=== PATIENT | female | born 1970 | race Hispanic/Latino ===

== ENCOUNTER 2018-01-08 19:48 | Inpatient (IN) | payer SELFPAY ==
--- NOTE | 2018-01-08 20:31 | ED PDOC ---
HPI: Psych/Substance Abuse Time Seen by Provider: 01/08/18 20:04 Chief Complaint (Nursing): Psychiatric Evaluation Chief Complaint (Provider): bizarre behavior ED Caveat: Psychotic History Per: EMS Onset/Duration Of Symptoms: Unknown Current Symptoms Are (Timing): Still Present Additional Complaint(s): [facility] Acting inappropriately and shouting. Speaking nonsensically. She continues to do so here and is unable to give any reliable history. Past Medical History Reviewed: Historical Data, Nursing Documentation, Vital Signs, Unable To Obtain Vital Signs: Last Vital Signs Temp 98.0 F 01/08/18 19:51 Pulse 103 H 01/08/18 19:51 Resp 16 01/08/18 19:51 BP 120/65 01/08/18 19:51 Pulse Ox 98 01/08/18 19:51 - Family History Family History: States: Unknown Family Hx - Allergies Allergies/Adverse Reactions: Allergies Allergy/AdvReac Type Severity Reaction Status Date / Time No Known Allergies Allergy Verified 01/08/18 19:50 Review of Systems Review Of Systems: ROS cannot be obtained secondary to pt's inabilty to answer questions. Physical Exam - Reviewed Nursing Documentation Reviewed: Yes Vital Signs Reviewed: Yes - Physical Exam Appears: Positive for: In Acute Distress (acutely psychotic) Head Exam: Positive for: NORMOCEPHALIC (+superficial abrasions RIGHT forehead) Skin: Positive for: Warm, Dry Eye Exam: Positive for: EOMI, PERRL Respiratory: Negative for: Accessory Muscle Use, Respiratory Distress Extremity: Positive for: Normal ROM. Negative for: Deformity Neurologic/Psych: Positive for: Alert, Other (speaking nonsensically with tangential thought pressured speech flight of ideas, assumes that staff are people she is related to or knows already). Negative for: Oriented, Motor/ Sensory Deficits, Aphasia - Laboratory Results Result Diagrams: 01/08/18 20:23 01/08/18 20:45 - ECG O2 Sat by Pulse Oximetry: 98 - Radiology Nexus Criteria: Midline Tenderness/Distra - Progress ED Course And Treament: Pt required medication and restraint for acute psychosis. Labs drawn and CT head performed when more cooperative (sleeping.) 12am Endorsed to Dr Sierra. Pt still somnolent from medications. ER workup thus far unremarkable. Pending alertness for Crisis eval. Stable at this time. Disposition - Clinical Impression Clinical Impression: Psychosis - Disposition Disposition: Transfer of Care Disposition Time: 01:00 Condition: FAIR Patient Signed Over To: Bora Sierra
[2018-01-08 20:50] LABS: BASO # 0.1 K/uL (0.0-0.2); BASO % 0.8 % (0.0-2.0); EOS # 0.2 K/uL (0.0-0.7); EOS % 2.9 % (0.0-4.0); HEMOGLOBIN 12.5 g/dL (12.0-16.0); LYMPH # 2.3 K/uL (1.0-4.3); LYMPH % 34.8 % (20.0-40.0); MEAN CELL VOLUME 81.6 fl (81.0-99.0); MEAN CORPUSCULAR HEMOGLOBIN 26.8 pg (27.0-31.0); MEAN CORPUSCULAR HGB CONC 32.9 g/dL (33.0-37.0); MEAN PLATELET VOLUME 9.1 fl (7.2-11.7); MONO # 0.4 K/uL (0.0-0.8); MONO % 6.4 % (0.0-10.0); NEUT # 3.7 K/uL (1.8-7.0); NEUT % 55.1 % (50.0-75.0); RBC 4.68 Mil/uL (3.80-5.20); RED CELL DISTRIBUTION WIDTH 15.7 % (11.5-14.5); WHITE BLOOD COUNT 6.7 K/uL (4.8-10.8)
[2018-01-08 21:05] LABS: ACETAMINOPHEN < 10.0 ug/ml (10.0-30.0); SALICYLATE < 1.0 mg/dl
[2018-01-08 21:07] LABS: ALT/SGPT 41 U/L (9-52); AST/SGOT 28 U/L (14-36); BLOOD UREA NITROGEN 19 mg/dl (7-17); CALCIUM 9.2 mg/dL (8.4-10.2); GFR AFRICAN-AMERICAN > 60; GFR NON-AFRICAN AMERICAN > 60
--- NOTE | 2018-01-09 01:00 | CT ---
EXAM: CT Head Without Intravenous Contrast CLINICAL HISTORY: 47 years old, female; Signs and symptoms; Other: R/O bleed TECHNIQUE: Axial computed tomography images of the head/brain without intravenous contrast. All CT scans at this facility use one or more dose reduction techniques, viz.: automated exposure control; ma/kV adjustment per patient size (including targeted exams where dose is matched to indication; i.e. head); or iterative reconstruction technique. Coronal and sagittal reformatted images were created and reviewed. COMPARISON: No relevant prior studies available. FINDINGS: Brain: Unremarkable. No hemorrhage. No significant white matter disease. No edema. Ventricles: Unremarkable. No ventriculomegaly. Bones/joints: Unremarkable. No acute fracture. Soft tissues: Unremarkable. Sinuses: Unremarkable as visualized. No acute sinusitis. Mastoid air cells: Unremarkable as visualized. No mastoid effusion. IMPRESSION: No evidence of an acute intracranial abnormality.
--- NOTE | 2018-01-09 08:40 | ED PDOC ---
- Laboratory Results Result Diagrams: 01/08/18 20:23 01/08/18 20:45 - ECG O2 Sat by Pulse Oximetry: 96 (RA) Pulse Ox Interpretation: Normal Medical Decision Making Medical Decision Making: Time: 834 Pending [facility] screening. 1300 Patient will sign in for voluntary admission., Accepted by Dr Johnson. Scribe Attestation: Documented by Breanne Davey, acting as a scribe for Jeanie Vera MD. Provider Scribe Attestation: All medical record entries made by the Scribe were at my direction and personally dictated by me. I have reviewed the chart and agree that the record accurately reflects my personal performance of the history, physical exam, medical decision making, and the department course for this patient. I have also personally directed, reviewed, and agree with the discharge instructions and disposition. Disposition Counseled Patient/Family Regarding: Studies Performed, Diagnosis - Clinical Impression Clinical Impression: Psychosis - POA Present On Arrival: None - Disposition Disposition: Admitted as In-Patient Disposition Time: 13:00 Condition: FAIR
[2018-01-09 15:45] LABS: BARBITURATES, UR NEGATIVE (NEGATIVE); BENZODIAZEPINES, UR NEGATIVE (NEGATIVE); OPIATES, UR NEGATIVE (NEGATIVE); PHENCYCLIDINE, UR NEGATIVE (NEGATIVE)
[2018-01-09] MEDS ORDERED: Alum-Mag Hydrox-Simethicone Susp (30 mL) PO PRN (17:18)
[2018-01-09] MEDS ORDERED: Magnesium Hydroxide Susp 30 ml UD PO PRN (17:18)
[2018-01-09] MEDS ORDERED: DiphenhydrAMINE 50 mg/ml Inj IM PRN (17:18)
[2018-01-09 18:21] VITALS: RESP 18
--- NOTE | 2018-01-09 18:57 | PCM.BM ---
<Remigio Palacios - Last Filed: 01/09/18 18:55> Treatment Plan Problems - Problems identified on initial assessmt schizophrenia spectrum Date Initiated: 01/09/18 Time Initiated: 16:00 Assessment reference: NA Status: Active Treatment assets and liabiliti Patient Assests: adapts well, ADL independent Patient Liabilities: live alone - Milieu Protocol Maintain good personal hygiene: every shift Encourage regular showers, every shift Remind patient to perform daily oral care, every shift Assist patient to perform ADL's Maintain personal safety: every shift Educate patient to report safety concerns to staff, every shift Monitor environment for contraband/sharps Medication safety: Monitor for expected outcome, potential side effects: every shift, Assess barriers to learning: every shift, Assess readiness for medication education: every shift <Robert Karimi - Last Filed: 01/10/18 19:52> Family Contact Family involvement: Famlicasey/SO not involved Family contact: Patient declines to allow family contact at present Family contact name: Unknown. - Goals for Treatment Patient goals for treatment: Pt unable to formulate goals at this time. Discharge/Continuing Care - Education Needs Education Needs: Patient Medication, Patient Diagnosis/Disease Process, Patient Coping Skills, Patient Community resources, Patient Personal Hygiene/Grooming, Patient Aftercare Safety Plan - Discharge Discharge Criteria: Tolerates medication w/o severe side effects, Free of paranoid thoughts, Free of agitation, Ability to care for self, Reduction of target symptoms Discharge to:: Custodial - Treatment Team Participation Discussed with Family/SO: No
[2018-01-10 11:44] VITALS: TEMP 97.4
--- NOTE | 2018-01-10 12:57 | CP.PCM.CON ---
History of Present Illness - History of Present Illness History of Present Illness: CC: Psychosis Patient is a 47 year old female [facility]. She is not able to give any reliable history due to acute psychosis and does not answer questions appropriately. No known medical problems in the past and does not take any outpatient medications. Review of Systems - Review of Systems Systems not reviewed;Unavailable: Psychotic Past Patient History - Infectious Disease Hx of Infectious Diseases: None - Past Medical History & Family History Past Medical History?: No Past Family History: Reviewed and not pertinent (unable to obtain due to acute psychosis) - Past Social History Smoking Status: Unknown If Ever Smoked Home Situation {Lives}: Homeless - PSYCHIATRIC Hx Schizophrenia: Yes ([facility] 2009 committed) Hx Substance Use: No Meds Allergies/Adverse Reactions: Allergies Allergy/AdvReac Type Severity Reaction Status Date / Time No Known Allergies Allergy Verified 01/08/18 19:50 - Medications Medications: Current Medications Acetaminophen (Tylenol 325mg Tab) 650 mg PO Q4 PRN PRN Reason: Pain, Mild (1-3) Al Hydrox/Mg Hydrox/Simethicone (Maalox Plus 30 Ml) 30 ml PO Q4 PRN PRN Reason: Dyspepsia Diphenhydramine HCl (Benadryl) 50 mg IM Q6 PRN PRN Reason: Extrapyramidal S/S Unable PO Diphenhydramine HCl (Benadryl) 50 mg PO HS PRN PRN Reason: EPS/Dystonic reaction Diphenhydramine HCl (Benadryl) 50 mg PO Q6 PRN PRN Reason: EPS/DYSTONIC reaction Haloperidol (Haldol) 5 mg PO Q4 PRN PRN Reason: Agitation Haloperidol Lactate (Haldol) 5 mg IM Q4 PRN PRN Reason: Agitation, Unable to Take PO Lorazepam (Ativan) 2 mg IM Q4 PRN PRN Reason: Anxiety/Agitation,Unable PO Lorazepam (Ativan) 2 mg PO Q4 PRN PRN Reason: Anxiety Magnesium Hydroxide (Milk Of Magnesia) 30 ml PO HS PRN PRN Reason: Constipation Physical Exam - Additional Findings Additional findings: Physical exam: Constitutional- acutely psychotic, awake, alert Head- 2 2x2 cm abrasions on her forehead, with eschars, healing well. NCAT, PERRL Eye- PERRL, EOMI ENT- normal exam, MMM. Neck- normal inspection, supple, no JVD Respiratory- CTAB, no wheezes rales rhonchi Cardiovascular- RRR, +S1, +S2 no MRG GI/Abdominal- normal bowel sounds, soft, no mass, no hsm Skin- warm, dry Extremities Exam- normal capillary refill, normal inspection Neurological Exam- alert, awake, oriented Psych- labile mood, acutely psychotic, pressed speech Results - Vital Signs Recent Vital Signs: Last Vital Signs Temp 97.4 F L 01/10/18 09:00 Pulse 85 01/10/18 09:00 Resp 18 01/10/18 09:00 BP 97/51 L 01/10/18 09:00 Pulse Ox 96 01/10/18 11:48 - Labs Result Diagrams: 01/08/18 20:23 01/08/18 20:45 Labs: Laboratory Results - last 24 hr 01/09/18 14:45 Urine Opiates Screen Negative Urine Methadone Screen Negative Ur Barbiturates Screen Negative Ur Phencyclidine Scrn Negative Ur Amphetamines Screen Negative U Benzodiazepines Scrn Negative U Oth Cocaine Metabols Negative U Cannabinoids Screen Negative Assessment & Plan - Assessment and Plan (Free Text) Plan: ASSESSMENT/PLAN 1) Acute psychosis on schizophrenia spectrum - management as per psychiatry - Wanda Byrd - Severe psychosis is apparent and she is an unreliable historian 2) Homeless patient - chronic - lives at jail
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
[2018-01-10 14:51] VITALS: BP 122/68; PULSE 76
--- NOTE | 2018-01-10 16:37 | RAD ---
HISTORY: needed for screening COMPARISON: No prior. FINDINGS: LUNGS: The lungs are well inflated and clear. PLEURA: No significant pleural effusion identified, no pneumothorax apparent. CARDIOVASCULAR: Normal. OSSEOUS STRUCTURES: No significant abnormalities. VISUALIZED UPPER ABDOMEN: Normal. OTHER FINDINGS: None. IMPRESSION: No active pulmonary disease.
[2018-01-10 19:57] LABS: SQUAMOUS EPITHIAL 1 /hpf (0-5); URINE BILIRUBIN NEGATIVE (NEGATIVE); URINE BLOOD NEGATIVE (NEGATIVE); URINE CLARITY CLOUDY (Clear); URINE COLOR YELLOW (YELLOW); URINE GLUCOSE (UA) NEG (Normal); URINE LEUKOCYTE ESTERASE NEG Leu/uL (Negative); URINE PROTEIN NEGATIVE (NEGATIVE); URINE UROBILINOGEN 0.2-1.0 mg/dL (0.2-1.0)
[2018-01-11 14:03] VITALS: O2SAT 98
--- NOTE | 2018-01-11 20:41 | CARD ---
APPROVED REPORT EKG Measurement Heart [id number] <Conclusion> Normal sinus rhythm Normal ECG
== END 2018-01-11 03:45 | DRG 885 ==
LOC: H.ER 19:48 → H.ERHOLD 01-09 14:36 → H.PSYCH 01-09 15:54
PROVIDERS: ADMIT Psychiatry & Neurology Psychiatry; ATTEND Psychiatry & Neurology Psychiatry
PROC: GZHZZZZ Group Psychotherapy (ICD-10-PCS; principal; 2018-01-09)
DX: F25.0 Schizoaffective disorder, bipolar type (principal); Z59.0 Homelessness; Z78.1 Physical restraint status; S00.83XA Contusion of other part of head, initial encounter; X58.XXXA Exposure to other specified factors, initial encounter; Y92.89 Other specified places as the place of occurrence of the external cause

== ENCOUNTER 2018-03-29 09:42 | Emergency (ER) | payer MEDICARE, MEDICAID ==
[2018-03-29 09:59] VITALS: BMI 33.4
[2018-03-29 10:14] VITALS: PULSE 78; TEMP 97; O2SAT 98
--- NOTE | 2018-03-29 12:02 | ED PDOC ---
HPI: CCC, URI, Sore Throat Time Seen by Provider: 03/29/18 10:24 Chief Complaint (Nursing): Cough, Cold, Congestion Chief Complaint (Provider): Cough x 2 weeks History Per: Patient History/Exam Limitations: no limitations Have you had recent travel within the past 21 days to any of the following countries: [place], [place], [place] or [place]?: No Onset/Duration Of Symptoms: Days Current Symptoms Are (Timing): Still Present Sick Contacts (Context): None Associated Symptoms: Cough, Sputum. denies: Fever, Chills, Sore Throat Ear Symptoms: Bilateral: None Additional Complaint(s): 47 yo female with no medical problems presents with cough x 2 weeks. PT reports yellow phlegm. No fever/chills. PT states she just wants medications for cough and cannot afford them. No chest pain. Past Medical History Reviewed: Historical Data, Nursing Documentation, Vital Signs Vital Signs: Last Vital Signs Temp 97 F L 03/29/18 10:11 Pulse 78 03/29/18 10:11 Resp 18 03/29/18 10:11 BP 104/69 03/29/18 09:58 Pulse Ox 98 03/29/18 10:11 - Medical History PMH: Schizophrenia ([facility] 2009 committed) - Surgical History Surgical History: No Surg Hx - Family History Family History: States: Unknown Family Hx - Living Arrangements Living Arrangements: With Family - Social History Current smoker - smoking cessation education provided: Yes - Home Medications Home Medications: Ambulatory Orders Medication Instructions Recorded Azithromycin [Zithromax] 250 mg PO DAILY #6 tab 03/29/18 Dextromethorphan Polistirex 30 mg PO Q12H #50 ml 03/29/18 [Delsym] - Allergies Allergies/Adverse Reactions: Allergies Allergy/AdvReac Type Severity Reaction Status Date / Time No Known Allergies Allergy Verified 01/08/18 19:50 Review of Systems ROS Statement: Except As Marked, All Systems Reviewed And Found Negative Constitutional: Negative for: Fever, Chills, Sweats Cardiovascular: Negative for: Chest Pain, Palpitations Respiratory: Positive for: Cough, Sputum. Negative for: Shortness of Breath Physical Exam - Reviewed Nursing Documentation Reviewed: Yes Vital Signs Reviewed: Yes - Physical Exam Appears: Positive for: Well, Non-toxic, No Acute Distress Head Exam: Positive for: ATRAUMATIC, NORMAL INSPECTION, NORMOCEPHALIC Skin: Positive for: Normal Color, Warm, DRY Eye Exam: Positive for: Normal appearance ENT: Positive for: Normal ENT Inspection Neck: Positive for: Normal, Painless ROM Cardiovascular/Chest: Positive for: Regular Rate, Rhythm Respiratory: Positive for: CNT, Normal Breath Sounds Back: Positive for: Normal Inspection Extremity: Positive for: Normal ROM Neurologic/Psych: Positive for: Alert, Oriented - ECG O2 Sat by Pulse Oximetry: 98 Medical Decision Making Medical Decision Making: CXR without acute cardiopulmonary findings. Disposition - Clinical Impression Clinical Impression: Cough - Patient ED Disposition Is Patient to be Admitted: No Counseled Patient/Family Regarding: Diagnosis, Need For Followup, Rx Given - Disposition [facility]errals: [facility] Disposition: Routine/Home Disposition Time: 12:02 Condition: STABLE Prescriptions: Azithromycin [Zithromax] 250 mg PO DAILY #6 tab Dextromethorphan Polistirex [Delsym] 30 mg PO Q12H #50 ml Instructions: Cough in Adults
--- NOTE | 2018-03-29 12:16 | RAD ---
Date of service: 03/29/2018 HISTORY: cough x 2 weeks COMPARISON: 01/10/2018. TECHNIQUE: Chest PA and lateral FINDINGS: LUNGS: No active pulmonary disease. PLEURA: No significant pleural effusion identified. No pneumothorax apparent. CARDIOVASCULAR: No radiographic findings to suggest acute or significant cardiovascular disease. OSSEOUS STRUCTURES: No significant abnormalities. VISUALIZED UPPER ABDOMEN: Normal. OTHER FINDINGS: None. IMPRESSION: No active disease. No significant interval change compared to the prior examination(s).
[2018-03-29 12:51] VITALS: BP 128/76; RESP 19
== END 2018-03-29 12:52 | disposition home or self-care (01) ==
LOC: H.ER 09:42
DX: R05 Cough (principal); F17.200 Nicotine dependence, unspecified, uncomplicated; F20.9 Schizophrenia, unspecified

== ENCOUNTER 2018-06-22 19:34 | Emergency (ER) | payer MEDICARE, OTHER ==
[2018-06-22 19:34] VITALS: BMI 33.4
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
[2018-06-23 04:55] LABS: ALBUMIN 3.4 g/dL (3.5-5.0); ALT/SGPT 41 U/L (9-52); AST/SGOT 33 U/L (14-36); BLOOD UREA NITROGEN 14 mg/dl (7-17); CALCIUM 8.6 mg/dL (8.4-10.2); GFR NON-AFRICAN AMERICAN > 60
[2018-06-23] MEDS ORDERED: Potassium Chloride 20 mEq ER Tab PO ONE ×2 (05:01→12:56)
[2018-06-23 05:03] LABS: SQUAMOUS EPITHIAL 1 /hpf (0-5); URINE BILIRUBIN NEGATIVE (NEGATIVE); URINE BLOOD SMALL (NEGATIVE); URINE CLARITY CLEAR (Clear); URINE COLOR YELLOW (YELLOW); URINE GLUCOSE (UA) NEG (Normal); URINE LEUKOCYTE ESTERASE NEG Leu/uL (Negative); URINE PROTEIN 30 mg/dL (NEGATIVE); URINE UROBILINOGEN 0.2-1.0 mg/dL (0.2-1.0)
[2018-06-23 05:13] LABS: BASO % 0.7 % (0.0-2.0); EOS # 0.3 K/uL (0.0-0.7); EOS % 4.9 % (0.0-4.0); LYMPH # 1.9 K/uL (1.0-4.3); LYMPH % 35.9 % (20.0-40.0); MEAN CELL VOLUME 81.9 fl (81.0-99.0); MEAN CORPUSCULAR HEMOGLOBIN 27.2 pg (27.0-31.0); MEAN CORPUSCULAR HGB CONC 33.2 g/dL (33.0-37.0); MONO # 0.5 K/uL (0.0-0.8); MONO % 10.1 % (0.0-10.0); NEUT # 2.5 K/uL (1.8-7.0); NEUT % 48.4 % (50.0-75.0); NRBC % 0.1 % (0.0-0.0); RBC 4.42 Mil/uL (3.80-5.20); RED CELL DISTRIBUTION WIDTH 14.3 % (11.5-14.5); WHITE BLOOD COUNT 5.2 K/uL (4.8-10.8)
[2018-06-23 05:37] LABS: BARBITURATES, UR NEGATIVE (NEGATIVE); BENZODIAZEPINES, UR NEGATIVE (NEGATIVE); OPIATES, UR NEGATIVE (NEGATIVE); PHENCYCLIDINE, UR NEGATIVE (NEGATIVE)
--- NOTE | 2018-06-23 06:45 | CARD ---
APPROVED REPORT Date of service: 06/23/2018 EKG Measurement Heart [id number] <Conclusion> Normal sinus rhythm Normal ECG
--- NOTE | 2018-06-23 07:33 | ED PDOC ---
- Laboratory Results Result Diagrams: 06/23/18 04:20 06/23/18 19:05 - ECG O2 Sat by Pulse Oximetry: 100 (RA) Medical Decision Making Medical Decision Makin Patient endorsed to me by Dr. Hernandez pending [facility] [place] screener evaluation. Time: 1500 -- Patient endorsed to Dr. Talley, pending [facility] [place] bed assignment. Scribe Attestation: Documented by Kei Mckeon, acting as a scribe for Jeanie Vera MD. Provider Scribe Attestation: All medical record entries made by the Scribe were at my direction and personally dictated by me. I have reviewed the chart and agree that the record accurately reflects my personal performance of the history, physical exam, medical decision making, and the department course for this patient. I have also personally directed, reviewed, and agree with the discharge instructions and disposition. Disposition - Clinical Impression Clinical Impression: Bipolar disorder - POA Present On Arrival: None - Disposition Disposition: Transfer of Care Disposition Time: 15:00 Condition: STABLE Forms: [facility] (Scottish) Patient Signed Over To: Tanna Talley
--- NOTE | 2018-06-23 13:01 | CP.PCM.CON ---
History of Present Illness - History of Present Illness History of Present Illness: Psychiatry consult note CC: "I need to shave off my skin to leave the hospital." HPI: 48 yo female w/ h/o psychotic disorder, presents acutely disorganized, bizarre and was agitated overnight requiring PRN medications. Patient was s leepy during flex o writer operator's attempt to speak with patient due to being acutely medicated. She did state that she does not want to be in the hospital, does not want treatment and that she needs to shave off her skin to leave the hospital. [place] [employer] unable to obtain any other history from the patient at this time. PPHx: History of involuntary psychiatric admission. ALL: NKDA Impression: 48 yo female presents acutely psychotic, was screened for involuntary psychiatric admission, accepted, pending bed and transfer. -Transfer to [facility] when bed is available -Haldol 5 mg PO/IM Q4HR PRN Agitation, Ativan 2 mg PO/IM Q4HR PRN Agitation, Benadryl 50 mg PO/IM Q4HR PRN agitation Past Patient History - Infectious Disease Hx of Infectious Diseases: None - Past Medical History & Family History Past Medical History?: No - Past Social History Alcohol: None Drugs: Denies - CARDIAC Hx Cardiac Disorders: No Hx Hypertension: No - PULMONARY Hx Tuberculosis: No - NEUROLOGICAL HX Cerebrovascular Accident: No Hx Seizures: No - HEMATOLOGICAL/ONCOLOGICAL Hx Cancer: No Hx Human Immunodeficiency Virus (HIV): No - GENITOURINARY/GYNECOLOGICAL Hx Sexually Transmitted Disorders: No - PSYCHIATRIC Hx Bipolar Disorder: Yes Hx Schizophrenia: Yes ([facility] 2009 committed) - SURGICAL HISTORY Hx Surgeries: No Meds Allergies/Adverse Reactions: Allergies Allergy/AdvReac Type Severity Reaction Status Date / Time No Known Allergies Allergy Verified 06/22/18 19:37 Results - Vital Signs Recent Vital Signs: Last Vital Signs Temp 97.8 F 06/23/18 12:58 Pulse 78 06/23/18 12:58 Resp 18 06/23/18 12:58 BP 122/74 06/23/18 12:58 Pulse Ox 100 06/23/18 12:58 - Labs Result Diagrams: 06/23/18 04:20 06/23/18 04:20 Labs: Laboratory Results - last 24 hr 06/23/18 06/23/18 06/23/18 04:20 04:20 04:20 WBC 5.2 RBC 4.42 Hgb 12.0 Hct 36.2 MCV 81.9 MCH 27.2 MCHC 33.2 RDW 14.3 Plt Count 266 MPV 10.0 Neut % (Auto) 48.4 L Lymph % (Auto) 35.9 Canadian % (Auto) 10.1 H Eos % (Auto) 4.9 H Baso % (Auto) 0.7 Neut # (Auto) 2.5 Lymph # (Auto) 1.9 Canadian # (Auto) 0.5 Eos # (Auto) 0.3 Baso # (Auto) 0.0 Sodium 144 Potassium 3.1 L Chloride 109 H Carbon Dioxide 26 Anion Gap 12 BUN 14 Creatinine 0.5 L Est GFR ( Amer) > 60 Est GFR (Non-Af Amer) > 60 Random Glucose 117 H Calcium 8.6 Total Bilirubin 0.4 AST 33 ALT 41 Alkaline Phosphatase 66 Total Protein 6.9 Albumin 3.4 L Globulin 3.5 Albumin/Globulin Ratio 1.0 Urine Color Urine Clarity Urine pH Ur Specific [place] Urine Protein Urine Glucose (UA) Urine Ketones Urine Blood Urine Nitrate Urine Bilirubin Urine Urobilinogen Ur Leukocyte Esterase Urine RBC (Auto) Urine Microscopic WBC Ur Squamous Epith Cells Urine Opiates Screen Negative Urine Methadone Screen Negative Ur Barbiturates Screen Negative Ur Phencyclidine Scrn Negative Ur Amphetamines Screen Negative U Benzodiazepines Scrn Negative U Oth Cocaine Metabols Negative U Cannabinoids Screen Negative Alcohol, Quantitative < 10 06/23/18 04:20 WBC RBC Hgb Hct MCV MCH MCHC RDW Plt Count MPV Neut % (Auto) Lymph % (Auto) Canadian % (Auto) Eos % (Auto) Baso % (Auto) Neut # (Auto) Lymph # (Auto) Canadian # (Auto) Eos # (Auto) Baso # (Auto) Sodium Potassium Chloride Carbon Dioxide Anion Gap BUN Creatinine Est GFR ( Amer) Est GFR (Non-Af Amer) Random Glucose Calcium Total Bilirubin AST ALT Alkaline Phosphatase Total Protein Albumin Globulin Albumin/Globulin Ratio Urine Color Yellow Urine Clarity Clear Urine pH 6.0 Ur Specific [place] 1.031 H Urine Protein 30 Urine Glucose (UA) Neg Urine Ketones Negative Urine Blood Small Urine Nitrate Negative Urine Bilirubin Negative Urine Urobilinogen 0.2-1.0 Ur Leukocyte Esterase Neg Urine RBC (Auto) 7 H Urine Microscopic WBC < 1 Ur Squamous Epith Cells 1 Urine Opiates Screen Urine Methadone Screen Ur Barbiturates Screen Ur Phencyclidine Scrn Ur Amphetamines Screen U Benzodiazepines Scrn U Oth Cocaine Metabols U Cannabinoids Screen Alcohol, Quantitative
--- NOTE | 2018-06-23 15:22 | ED PDOC ---
- Laboratory Results Result Diagrams: 06/23/18 04:20 06/23/18 04:20 - ECG O2 Sat by Pulse Oximetry: 100 Medical Decision Making Medical Decision Making: Accession No. : [id number] Patient Name / ID : YOCASTA CHAPPELL / [id number] Exam Date : 06/23/2018 14:49:38 ( Approved ) Study Comment : Sex / Age : F / 48Y Creator : Beth Crews MD Dictator : Beth Crews MD Care Transport Nurse : Nurse Practitioner Per Diem : Beth Crews MD Approver2 : Report Date : 06/23/2018 15:33:59 My Comment : HISTORY: Medical clearance COMPARISON: 03/29/2018. TECHNIQUE: Chest PA and lateral FINDINGS: LINES AND TUBES: None. LUNG AND PLEURA: The lungs are well inflated and clear. No pleural effusion or pneumothorax. HEART AND MEDIASTINUM: The heart is not enlarged. The hilar and mediastinal contours are within normal limits. SKELETAL STRUCTURES: The bony structures are within normal limits for the patient's age. VISUALIZED UPPER ABDOMEN: Normal. OTHER FINDINGS: None. IMPRESSION: No active pulmonary disease. Disposition - Clinical Impression Clinical Impression: Bipolar disorder - Disposition Condition: FAIR Forms: [employer] (Vietnamese) Addendum Addendum: 06/23/18 15:00 Pt signed out by Dr. Vera pending CX[place] [facility] [place]
--- NOTE | 2018-06-23 15:37 | RAD ---
HISTORY: Medical clearance COMPARISON: 03/29/2018. TECHNIQUE: Chest PA and lateral FINDINGS: LINES AND TUBES: None. LUNG AND PLEURA: The lungs are well inflated and clear. No pleural effusion or pneumothorax. HEART AND MEDIASTINUM: The heart is not enlarged. The hilar and mediastinal contours are within normal limits. SKELETAL STRUCTURES: The bony structures are within normal limits for the patient's age. VISUALIZED UPPER ABDOMEN: Normal. OTHER FINDINGS: None. IMPRESSION: No active pulmonary disease.
--- NOTE | 2018-06-24 00:07 | ED PDOC ---
- Laboratory Results Result Diagrams: 06/23/18 04:20 06/23/18 19:05 - ECG O2 Sat by Pulse Oximetry: 100 Medical Decision Making Medical Decision Makin:00 Patient endorsed to provider by Dr. Talley, pending [facility] [place] bed availability. Disposition - Clinical Impression Clinical Impression: Bipolar disorder - POA Present On Arrival: None - Disposition Disposition: Transfer of Care Disposition Time: 07:00 Condition: FAIR Forms: [employer] [facility] (Telugu) Patient Signed Over To: Jeanie Vera Handoff Comments: pending [facility] [place] involuntary bed availability
[2018-06-24 07:37] VITALS: RESP 19
--- NOTE | 2018-06-24 13:02 | CP.PCM.CON ---
History of Present Illness - History of Present Illness History of Present Illness: Psychiatry consult follow-up note CC: Acute psychosis/disorganization HPI: 48 yo female w/ h/o psychotic disorder, presents acutely disorganized and bizarre. Patient continues to be disorganized w/ non-linear speech, speaking [place] citizen/vietnamese/djiboutian at various times, not making sense. She continues to think she does not need psychiatric treatment or medications. PPHx: History of involuntary psychiatric admission. ALL: NKDA Impression: 48 yo female presents acutely psychotic, was screened for involuntary psychiatric admission, accepted, pending bed and transfer. -Transfer to [facility] when bed is available -Haldol 5 mg PO/IM Q4HR PRN Agitation, Ativan 2 mg PO/IM Q4HR PRN Agitation, Benadryl 50 mg PO/IM Q4HR PRN agitation Past Patient History - Infectious Disease Hx of Infectious Diseases: None - Past Medical History & Family History Past Medical History?: No - Past Social History Alcohol: None Drugs: Denies - CARDIAC Hx Cardiac Disorders: No Hx Hypertension: No - PULMONARY Hx Tuberculosis: No - NEUROLOGICAL HX Cerebrovascular Accident: No Hx Seizures: No - HEMATOLOGICAL/ONCOLOGICAL Hx Cancer: No Hx Human Immunodeficiency Virus (HIV): No - GENITOURINARY/GYNECOLOGICAL Hx Sexually Transmitted Disorders: No - PSYCHIATRIC Hx Bipolar Disorder: Yes Hx Schizophrenia: Yes ([facility] 2009 committed) - SURGICAL HISTORY Hx Surgeries: No Meds Allergies/Adverse Reactions: Allergies Allergy/AdvReac Type Severity Reaction Status Date / Time No Known Allergies Allergy Verified 06/22/18 19:37 Results - Vital Signs Recent Vital Signs: Last Vital Signs Temp 97.5 F L 06/24/18 07:36 Pulse 76 06/24/18 10:15 Resp 19 06/24/18 10:15 BP 120/61 06/24/18 10:15 Pulse Ox 98 06/24/18 10:15 - Labs Result Diagrams: 06/23/18 04:20 06/23/18 19:05 Labs: Laboratory Results - last 24 hr 06/23/18 19:05 Potassium 4.0
--- NOTE | 2018-06-24 13:32 | ED PDOC ---
- Laboratory Results Result Diagrams: 06/23/18 04:20 06/23/18 19:05 - ECG O2 Sat by Pulse Oximetry: 98 (RA) Pulse Ox Interpretation: Normal Medical Decision Making Medical Decision Makin:00 --Care endorsed to this provider by Dr. Hernandez. 13:04 --Patient became extremely aggressive and combative towards staff. --Haldol and Ativan administered for acute psychosis. Scribe Attestation: Documented by Ghazal Goodman, acting as a scribe for Mateus Thompson III, DO Provider Scribe Attestation: All medical record entries made by the Scribe were at my direction and personally dictated by me. I have reviewed the chart and agree that the record accurately reflects my personal performance of the history, physical exam, medical decision making, and the department course for this patient. I have also personally directed, reviewed, and agree with the discharge instructions and disposition. Disposition Counseled Patient/Family Regarding: Studies Performed, Diagnosis - Clinical Impression Clinical Impression: Bipolar disorder - POA Present On Arrival: None - Disposition Disposition: Other Institution ([facility] [place] psych) Disposition Time: 15:00 Condition: STABLE
[2018-06-24 17:28] VITALS: BP 118/59; PULSE 79; TEMP 97.6
[2018-06-28 15:36] VITALS: O2SAT 98
== END 2018-06-24 17:49 | disposition short-term general hospital (02) ==
LOC: H.ER 19:34
DX: F31.9 Bipolar disorder, unspecified (principal); Z00.8 Encounter for other general examination; Z86.59 Personal history of other mental and behavioral disorders
CPT/HCPCS: 80053; 81003; 84132; 85025; 96372; 99285; G0480; J1630; J2060